=== PATIENT | female | born 1990 | race Caucasian/White ===

== ENCOUNTER 2019-08-31 22:18 | Emergency (ER) | payer SELFPAY ==
[2019-08-31] MEDS ORDERED: Aspirin 81 MG Tab.Chew PO ONE (22:35)
--- NOTE | 2019-08-31 23:38 | EDM.PDOC ---
ED HPI GENERAL MEDICAL PROBLEM - General Chief Complaint: Chest Pain Stated Complaint: CHEST PAIN/LEFT ARM SWOLLEN Time Seen by Provider: 08/31/19 22:23 Source of Information: Reports: Patient History Limitations: Reports: No Limitations - History of Present Illness INITIAL COMMENTS - FREE TEXT/NARRATIVE: The patient presents with mid chest pain. She said this pain started last night. She has no shortness of breath with it. She says taking a deep breath does make it worse. Her coworkers thought her left arm is swollen. She does have pain in her left arm also. She has no history of heart problems and she has never had pain like this before. She does not smoke. She does have a family history of heart disease. She has no history of hypertension or hypercholesterolemia. She has no swelling or pain in he legs. She has no history of DVT or PE. Onset: Gradual Duration: Day(s): Location: Reports: Chest, Upper Extremity, Left (arm) Quality: Reports: Sharp Severity: Moderate Improves with: Reports: None Worsens with: Reports: Breathing Associated Symptoms: Reports: Chest Pain. Denies: Cough, Fever/Chills, Headaches, Nausea/Vomiting, Shortness of Breath Middle Chest Pain Score (Numeric/FACES): 8 - Related Data Allergies Allergy/AdvReac Type Severity Reaction Status Date / Time coconut Allergy Shortness Verified 08/31/19 22:30 of Breath Home Meds: Home Meds . [No Known Home Meds] 08/31/19 [History] Past Medical History HEENT History: Reports: None Cardiovascular History: Reports: None Respiratory History: Reports: None Gastrointestinal History: Reports: Other (See Below) Other Gastrointestinal History: Hx of Stomach Ulcers Genitourinary History: Reports: None DEAN OF MEN History: Reports: None Musculoskeletal History: Reports: Arthritis, Back Pain, Chronic, Other (See Below) Other Musculoskeletal History: Left Knee Pain Neurological History: Reports: None Psychiatric History: Reports: None Endocrine/Metabolic History: Reports: Obesity/BMI 30+ Hematologic History: Reports: None Immunologic History: Reports: None Oncologic (Cancer) History: Reports: None Dermatologic History: Reports: None - Infectious Disease History Infectious Disease History: Reports: None - Past Surgical History GI Surgical History: Reports: EGD Social & Family History - Tobacco Use Smoking Status *Q: Never Smoker - Caffeine Use Caffeine Use: Reports: Soda - Recreational Drug Use Recreational Drug Use: No ED ROS GENERAL - Review of Systems Review Of Systems: See Below Constitutional: Reports: No Symptoms HEENT: Reports: No Symptoms Respiratory: Reports: No Symptoms Cardiovascular: Reports: Chest Pain Endocrine: Reports: No Symptoms GI/Abdominal: Reports: No Symptoms : Reports: No Symptoms Musculoskeletal: Reports: No Symptoms Skin: Reports: No Symptoms ED EXAM, GENERAL - Physical Exam Exam: See Below Exam Limited By: No Limitations General Appearance: Alert, No Apparent Distress Ears: Normal External Exam Nose: Normal Inspection Head: Atraumatic, Normocephalic Neck: Normal Inspection Respiratory/Chest: No Respiratory Distress, Lungs Clear, Normal Breath Sounds Cardiovascular: Regular Rate, Rhythm, No Edema, No Murmur GI/Abdominal: Soft, Non-Tender, No Organomegaly, No Mass Back Exam: Normal Inspection Extremities: Other (Mild pain upon palpation to the left arm but no edema noted. Good sensation and pulses distally.) Neurological: Alert, Oriented, No Motor/Sensory Deficits EKG INTERPRETATION EKG Date: 08/31/19 Time: 23:04 Rhythm: NSR Rate (Beats/Min): 82 [place]: Normal P-Wave: Present QRS: Normal ST-T: Normal QT: Normal Course - Vital Signs Last Recorded V/S: Last Vital Signs Temp 98.4 F 08/31/19 22:26 Pulse 86 08/31/19 22:26 Resp 16 08/31/19 22:26 BP 128/67 08/31/19 22:26 Pulse Ox 100 08/31/19 22:26 - Orders/Labs/Meds Orders: Active Orders 24 hr Category Date Time Status Cardiac Monitoring [RC] . DIRECTED Care 08/31/19 22:35 Active EKG Documentation Completion [RC] STAT Care 08/31/19 22:38 Active Chest 2V [CR] Stat Exams 08/31/19 22:38 Taken Labs: Laboratory Tests 08/31/19 08/31/19 08/31/19 Range/Units 22:51 22:51 22:51 WBC 11.59 H (3.98-10.04) K/mm3 RBC 4.15 (3.98-5.22) M/mm3 Hgb 12.5 (11.2-15.7) gm/dl Hct 37.3 (34.1-44.9) % MCV 89.9 (79.4-94.8) fl MCH 30.1 (25.6-32.2) pg MCHC 33.5 (32.2-35.5) g/dl RDW Std Deviation 38.9 (36.4-46.3) fL Plt Count 336 (182-369) K/mm3 MPV 10.1 (9.4-12.3) fl Neut % (Auto) 70.5 (34.0-71.1) % Lymph % (Auto) 21.5 (19.3-51.7) % Cache % (Auto) 6.6 (4.7-12.5) % Eos % (Auto) 0.9 (0.7-5.8) Baso % (Auto) 0.3 (0.1-1.2) % Neut # (Auto) 8.16 H (1.56-6.13) K/mm3 Lymph # (Auto) 2.49 (1.18-3.74) K/mm3 Cache # (Auto) 0.77 H (0.24-0.36) K/mm3 Eos # (Auto) 0.11 (0.04-0.36) K/mm3 Baso # (Auto) 0.04 (0.01-0.08) K/mm3 Manual Slide Review Normal smear D-Dimer, Quantitative 0.49 (0.19-0.50) mg/L Sodium 137 (136-145) mEq/L Potassium 3.8 (3.5-5.1) mEq/L Chloride 101 (98-107) mEq/L Carbon Dioxide 25 (21-32) mEq/L Anion Gap 14.8 (5-15) BUN 12 (7-18) mg/dL Creatinine 0.9 (0.55-1.02) mg/dL Est Cr Clr Drug Dosing 93.88 mL/min Estimated GFR (MDRD) > 60 (>60) mL/min BUN/Creatinine Ratio 13.3 L (14-18) Glucose 102 (74-106) mg/dL Calcium 9.0 (8.5-10.1) mg/dL Total Bilirubin 0.4 (0.2-1.0) mg/dL AST 28 (15-37) U/L ALT 41 (14-59) U/L Alkaline Phosphatase 70 (46-116) U/L Troponin I < 0.017 (0.00-0.056) ng/mL Total Protein 7.6 (6.4-8.2) g/dl Albumin 3.8 (3.4-5.0) g/dl Globulin 3.8 gm/dL Albumin/Globulin Ratio 1.0 (1-2) Meds: Medications Discontinued Medications Generic Name Dose Route Start Last Admin Trade Name Julia PRN Reason Stop Dose Admin Aspirin 324 mg 08/31/19 22:35 08/31/19 22:43 Aspirin PO 08/31/19 22:36 324 mg ONETIME ONE Administration - Re-Assessments/Exams Free Text/Narrative Re-Assessment/Exam: 08/31/19 23:35 I ordered aspirin, EKG, CXR and labs. Her EKG shows a NSR with no acute changes. Her CXR shows nothing acute. Her WBC was up slightly at 11.59. Her CMP looks good. Her D-dimer and troponin are negative. I feel this is pleurisy. I will have her take antiinflammatories. Departure - Departure Time of Disposition: 23:40 Disposition: Home, Self-Care 01 Condition: Good Clinical Impression: Pleurisy Referrals: PCP,None [Primary Care Provider] - Forms: ED Department Discharge, ED Return to Work/School Form Additional Instructions: Take motrin or aleve for pain. Drink plenty of fluids. Please return if you are worse. - My Orders Last 24 Hours: My Active Orders 08/31/19 22:35 Cardiac Monitoring [RC] . DIRECTED 08/31/19 22:38 EKG Documentation Completion [RC] STAT Chest 2V [CR] Stat - Assessment/Plan Last 24 Hours: My Active Orders 08/31/19 22:35 Cardiac Monitoring [RC] . DIRECTED 08/31/19 22:38 EKG Documentation Completion [RC] STAT Chest 2V [CR] Stat
--- NOTE | 2019-09-04 06:36 | CR ---
Chest: Two views of the chest were obtained. Comparison: No prior chest x-ray. Heart size and mediastinum are normal. Lungs are clear. Bony structures are unremarkable. Impression: 1. Nothing acute is seen on two-view chest x-ray. Diagnostic code #1 This report was dictated in [place] Standard Time
== END 2019-08-31 23:50 | disposition home or self-care (01) ==
LOC: JD.ED 22:18
DX: R09.1 Pleurisy (principal); Z91.018 Allergy to other foods
CPT/HCPCS: 36415; 71046; 80053; 84484; 85025; 85379; 93005; 99285; A9270; 93010; 99283

== ENCOUNTER 2019-12-05 22:40 | Emergency (ER) | payer SELFPAY ==
--- NOTE | 2019-12-06 00:32 | EDM.PDOC ---
ED HPI GENERAL MEDICAL PROBLEM - General Chief Complaint: Chest Pain Stated Complaint: CHEST PAIN/LEFT ARM HURT Time Seen by Provider: 12/06/19 00:30 Source of Information: Reports: Patient History Limitations: Reports: No Limitations - History of Present Illness INITIAL COMMENTS - FREE TEXT/NARRATIVE: Patient is a 29-year-old female who presents with complaints of cough, fever, chills, congestion, "lung pain"with breathing and cough. Patient states that she was sick with GI symptoms on Wednesday, however those resolved. Her respiratory symptoms and fever started abruptly today. She does also have body aches. Patient has not had influenza vaccination this year. 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 She denies any nausea, vomiting, or diarrhea today. She has no chronic health problems and takes no daily medications. Chest Pain Score (Numeric/FACES): 9 - Related Data Allergies Allergy/AdvReac Type Severity Reaction Status Date / Time coconut Allergy Shortness Verified 08/31/19 22:30 of Breath Home Meds: Home Meds . 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 Musculoskeletal History: Reports: Arthritis, Back Pain, Chronic, Other (See Below) Other Musculoskeletal History: Left Knee Pain Neurological History: Reports: None Psychiatric History: Reports: None Endocrine/Metabolic History: Reports: Obesity/BMI 30+ Hematologic History: Reports: None Immunologic History: Reports: None Oncologic (Cancer) History: Reports: None Dermatologic History: Reports: None - Infectious Disease History Infectious Disease History: Reports: None - Past Surgical History GI Surgical History: Reports: EGD Social & Family History - Tobacco Use Smoking Status *Q: Never Smoker - Caffeine Use Caffeine Use: Reports: Soda - Recreational Drug Use Recreational Drug Use: No ED ROS GENERAL - Review of Systems Review Of Systems: See Below Constitutional: Reports: Fever, Chills, Fatigue HEENT: Reports: Ear Pain, Rhinitis, Throat Pain (Mild) Respiratory: Reports: Pleuritic Chest Pain, Cough. Denies: Shortness of Breath , Wheezing Cardiovascular: Reports: No Symptoms Endocrine: Reports: No Symptoms GI/Abdominal: Reports: Abdominal Pain (Intermittent generalized cramping) : Reports: No Symptoms Musculoskeletal: Reports: Joint Pain (Generalized throughout), Other ( Generalized body aches throughout) Skin: Reports: No Symptoms Neurological: Reports: No Symptoms Psychiatric: Reports: No Symptoms Hematologic/Lymphatic: Reports: No Symptoms Immunologic: Reports: No Symptoms ED EXAM, GENERAL - Physical Exam Exam: See Below Exam Limited By: No Limitations General Appearance: Alert, WD/WN, No Apparent Distress Ears: Normal External Exam, Normal Canal, Hearing Grossly Normal, Normal TMs Throat/Mouth: Normal Lips, Normal Teeth, Normal Gums, Normal Voice, No Airway Compromise, Other (Slightly erythematous) Neck: Normal Inspection Respiratory/Chest: No Respiratory Distress, Lungs Clear, Normal Breath Sounds, No Accessory Muscle Use, Chest Non-Tender Cardiovascular: Normal Peripheral Pulses, Regular Rate, Rhythm, No Edema, No Gallop, No JVD, No Murmur, No Rub GI/Abdominal: Normal Bowel Sounds, Soft, Non-Tender, No Organomegaly, No Distention, No Abnormal Bruit, No Mass Neurological: Alert, Oriented, CN II-XII Intact, Normal Cognition, Normal Gait, Normal Reflexes, No Motor/Sensory Deficits Psychiatric: Normal Affect, Normal Mood Skin Exam: Warm, Dry, Intact, Normal Color, No Rash Course - Vital Signs Last Recorded V/S: Last Vital Signs Temp 101.5 F H 12/05/19 22:56 Pulse 118 H 12/05/19 22:56 Resp 20 12/05/19 22:56 BP 141/90 H 12/05/19 22:56 Pulse Ox 97 12/05/19 22:56 - Orders/Labs/Meds Orders: Active Orders 24 hr Category Date Time Status RT Post Treatment Assessment [RC] Click to Edit Care 12/06/19 01:59 Active RT Pre-Treatment Assessment [RC] Click to Edit Care 12/06/19 01:59 Active Isolation [COMM] Routine Oth 12/06/19 00:31 Ordered Meds: Medications Discontinued Medications Generic Name Dose Route Start Last Admin Trade Name Freq PRN Reason Stop Dose Admin Albuterol 0 gm 12/06/19 01:58 12/06/19 02:20 Proventil Hfa INH 12/06/19 01:59 2 puff ONETIME ONE Administration - Re-Assessments/Exams Free Text/Narrative Re-Assessment/Exam: 12/06/19 02:05 Chest x-ray was negative for any abnormalities. Influenza screen was negative. Discussed with the patient that she is likely has a viral upper respiratory infection. Recommend that she increase her fluid intake, and use ibuprofen as needed for any fever, chest discomfort or body aches. We will send her home with a albuterol inhaler with spacer. Discussed the use of [id number] cough syrups with DM as she feels that she is allergic to codeine. Discharge instructions as documented. Departure - Departure Time of Disposition: 02:07 Disposition: Home, Self-Care 01 Condition: Fair Clinical Impression: Viral respiratory illness - Discharge Information *PRESCRIPTION DRUG MONITORING PROGRAM REVIEWED*: No *COPY OF PRESCRIPTION DRUG MONITORING REPORT IN PATIENT NILSA: No Instructions: Viral Respiratory Infection, [id number] Referrals: PCP,None [Primary Care Provider] - Forms: ED Department Discharge Additional Instructions: You were seen in the emergency department today for cough, chest discomfort, fever, congestion, and body aches. On exam, your lungs were clear. A flu screen and chest x-ray was completed. The flu screen was negative, however as we discussed, this test is not 100% reliable and based on your clinical symptoms it is a definite possibility that you have influenza. Chest x-ray was also completed and was negative for any signs of pneumonia. Would recommend that you continue to use [id number] ibuprofen as needed for your fever or body aches. You may use [id number] cough syrup with DM since you feel that you may be allergic to codeine. You have been provided with an albuterol inhaler as needed for wheezing and chest tightness. You may use this, 2 puffs every 4 hours as needed. Recommend that you increase your fluid intake and get an adequate amount of rest. If you should experience any worsening symptoms, or fail to improve over the course of the next few days, I would recommend that you return to the emergency department or follow-up in the clinic. Sepsis Event Note - Evaluation Sepsis Screening Result: No Definite Risk - Focused Exam Date Exam was Performed: 12/06/19 Time Exam was Performed: 16:51 - My Orders Last 24 Hours: My Active Orders 12/06/19 00:31 Isolation [COMM] Routine 12/06/19 01:59 RT Post Treatment Assessment [RC] Click to Edit RT Pre-Treatment Assessment [RC] Click to Edit - Assessment/Plan Last 24 Hours: My Active Orders 12/06/19 00:31 Isolation [COMM] Routine 12/06/19 01:59 RT Post Treatment Assessment [RC] Click to Edit RT Pre-Treatment Assessment [RC] Click to Edit
[2019-12-06] MEDS ORDERED: Albuterol 6.7 GM Inhaler INH ONE (01:58)
--- NOTE | 2019-12-06 07:30 | CR ---
Chest: Two views of the chest were obtained. Comparison: Previous chest x-ray of 08/31/19. Heart size and mediastinum are normal. Lungs are clear with no acute parenchymal change. Bony structures are unremarkable. Impression: 1. Nothing acute is appreciated on two-view chest x-ray. Diagnostic code #1 This report was dictated in [place] Standard Time
== END 2019-12-06 02:22 | disposition home or self-care (01) ==
LOC: JD.ED 22:40
DX: J06.9 Acute upper respiratory infection, unspecified (principal); E66.9 Obesity, unspecified; Z91.018 Allergy to other foods; Z68.41 Body mass index [BMI] 40.0-44.9, adult
CPT/HCPCS: 71046; 87804; 94640; 99284; A9270; 99283